=== PATIENT | female | born 2000 | race Caucasian/White ===

== ENCOUNTER 2020-01-24 10:16 | Emergency (ER) | payer OTHER, SELFPAY ==
[2020-01-24 10:32] VITALS: BP 109/66; PULSE 98; RESP 14; TEMP 36.8; O2SAT 100
[2020-01-24 11:05] LABS: Basophils Percent Auto 0.8 % (0.2-1.2); Eosinophils Absolute Auto 0.1 K/mm3 (0-0.3); Eosinophils Percent Auto 2.6 % (0-4.4); Hematocrit 39.7 % (37.0-47.0); Hemoglobin 13.5 g/dL (12.0-15.0); Immature Granulocyte Absolute 0.01 K/mm3 (0.00-0.031); Immature Granulocyte Percent A 0.2 % (0-0.5); Lymphocytes Absolute Auto 2.07 K/mm3 (0.9-3.2); Lymphocytes Percent Auto 39.1 % (18.3-44.2); Mean Corpuscular Hemoglobin 31.1 pg (26-34); Mean Corpuscular Volume 91.5 fl (80-100); Mean Platelet Volume 9.9 fl (7.4-10.4); Monocytes Absolute Auto 0.4 K/mm3 (0.1-0.6); Monocytes Percent Auto 7.4 % (2.6-8.5); Neutrophils Absolute Auto 2.6 K/mm3 (1.3-6.7); Neutrophils Percent Auto 49.9 % (45.5-73.1); Platelet Count Result 286 k/mm3 (150-375); Red Blood Count 4.34 M/mm3 (4.2-5.4); Red Cell Distribution Width 12.5 % (11.5-14.5); White Blood Count 5.3 K/mm3 (4.5-10.0)
[2020-01-24 11:18] LABS: Alanine Aminotransferase 12 U/L (4-35); Albumin Level 4.7 g/dL (3.7-5.6); Alkaline Phosphatase 60 U/L (45-116); Anion Gap 11.9 mmol/L (7-16); Aspartate Amino Transferase 23 U/L (14-36); Bilirubin,Total 0.4 mg/dL (0.2-1.3); Blood Urea Nitrogen 11 mg/dL (8-21); Calcium 9.4 mg/dL (8.9-10.7); Carbon Dioxide 27 mmol/L (22-30); Chloride 103 mmol/L (98-107); Estimated CRCL calculation 116 ml/min; Estimated Glomerular Filt Rate > 60; Glucose 93 mg/dL (65-105); Lipase 53 U/L (23-300); Potassium 3.9 mmol/L (3.4-5.0); Sodium 138 mmol/L (134-143)
[2020-01-24 11:26] LABS: Add Urine Microscopic? YES; Appearance Urine Cloudy (Clear); Bilirubin Urine Negative (Negative); Blood Urine 3+ (Negative); Color Urine Red (Yellow); Glucose Urine UA Negative (Negative); Ketones Urine Negative (Negative); Leukocyte Esterase Ur Negative LEU/UL (Negative); Mucus Urine Rare /lpf; Nitrate Urine Negative (Negative); Protein Urine 2+ mg/dL (Negative); RBC Urine >75 /hpf (0-2); Specific Grav Ur 1.019 (1.001-1.035); Squamous Epithelial Cell Urine Many /hpf (Few); Urobilinogen Urine Negative mg/dL (<2.0); WBC Urine 16-20 /hpf
[2020-01-24] MEDS: KETOROLAC 15 MG/ML VIAL (*BKC) IV PUSH (11:35)
--- NOTE | 2020-01-24 12:17 | PC.NURSE ---
Pelvic exam per ELIJAH Arroyo with this RN in attendance. Pt tolerated procedure well. Minimal bleeding noted. Pt wishes to replace tampon immediately after exam.
--- NOTE | 2020-01-24 12:58 | ED.GENADULT ---
HPI - General Adult General Chief complaint: Abdominal Pain Stated complaint: LOWER ABD PAIN Time Seen by Provider: 01/24/20 10:38 Source: patient and family Mode of arrival: ambulatory Limitations: no limitations History of Present Illness HPI narrative: Patient presents with pelvic discomfort and heavy vaginal bleeding accompanied with her menstrual cycle. Patient states that she has been evaluated within the past week by Dr. Chandrakant Cameron and is being managed for endometriosis. Patient states that she had a vaginal ultrasound which showed fluid around her uterus and she is having a laparoscopic procedure on the to remove said fluid. Patient states that she take Sprintec control pills but has for some time. She also takes Midol for pelvic discomfort when it presents. She last took a Midol this morning at approximately 10 AM prior to coming to the emergency department. Patient reports that the pain improves with pressure to her pelvic region. She reports that her bleeding has slowed.She denies weakness or dizziness. Related Data Home Medications Medication Instructions Recorded Confirmed norgestimate-ethinyl estradiol tablet 01/24/20 [Sprintec (28)] Allergies Allergy/AdvReac Type Severity Reaction Status Date / Time AMOXICILLIN Allergy Unknown Unknown Uncoded 01/24/20 10:38 Review of Systems Review of Systems: Narrative: CONSTITUTIONAL: Denies fever, chills, or sweats. EYES: Denies visual changes, redness, or discharge. ENT: Denies rhinorrhea, congestion, sore throat, or otalgia. CARDIOVASCULAR: Denies chest pain, palpitations, or edema. RESPIRATORY: Denies cough or dyspnea. GASTROINTESTINAL: Denies abdominal pain, nausea, vomiting, or diarrhea. GENITOURINARY: Reports heavy vaginal bleeding and pelvic pain denies dysuria or hematuria. SKIN: Denies rash or itching. MUSCULOSKELETAL: Denies back pain, joint pain, or myalgia. NEUROLOGIC: Denies headache, numbness, dizziness, or weakness. PSYCHIATRIC: Denies anxiety or depression. [facility] Past Medical History Medical History (Updated 01/24/20 @ 13:03 by Sundeep Montgomery PA-C) Endometriosis Social History Social History Gender identity (if verbalized by the patient): Female Exam Narrative: Exam Narrative: GENERAL: Well-appearing, well-nourished, and in no acute distress. HEAD: Normocephalic, atraumatic. EYES: PERRLA and EOMI. ENT: Nares clear, no rhinorrhea or epistaxis. Mucous membranes moist. Oropharynx without tonsillar hypertrophy exudate or other lesions. Bilateral TMs pearly mota nonbulging NECK: Supple. No adenopathy or masses. CHEST: Clear to auscultation. No respiratory distress. No wheezes rales or rhonchi HEART: Regular rate and rhythm. ABDOMEN: Soft, nontender to palpation, nondistended, normal active bowel sounds. PELVIC: Mild bleeding from cervix. A few small clots noted. No CMT. No discharge noted. EXTREMITIES: Normal range of motion. No edema. SKIN: Warm, dry, no rash. NEURO: No focal deficits. Alert and oriented x3. PSYCH: Normal mood and affect. Course Vital Signs Vital signs: Vital Signs Temperature 98.3 F 01/24/20 10:32 Pulse Rate 98 01/24/20 10:32 Respiratory Rate 14 01/24/20 10:32 Blood Pressure 109/66 01/24/20 10:32 Pulse Oximetry 100 01/24/20 10:32 Temperature 98.3 F 01/24/20 10:32 Pulse Rate 72 01/24/20 13:34 Respiratory Rate 16 01/24/20 13:34 Blood Pressure 134/75 01/24/20 13:34 Pulse Oximetry 100 01/24/20 13:34 Medical Decision Making MDM Narrative Medical decision making narrative: Consult Dr. More who is on-call for patient's BLOCK [employer] Dr. Chandrakant Cameron. He states to have the patient start her new pack of control pills immediately and tell her to skip any placebo weeks until her laparoscopic procedure. He would like her to continue Midol for discomfort. He states that she can also use Motrin if needed. He would not recommend any additional lab work or imaging in
[2020-01-24 13:34] VITALS: BP 134/75; PULSE 72; RESP 16; O2SAT 100
== END 2020-01-24 13:35 | disposition home or self-care (01) ==
PROVIDERS: Physician Assistant; Emergency Provider Emergency Medicine; PCP Family Medicine Adolescent Medicine
DX: N80.9 Endometriosis, unspecified (principal)
CPT/HCPCS: 36415; 80053; 81001; 81025; 83690; 85025; 87077; 87086; 87088; 87186; 96374; 99284; J1885

== ENCOUNTER 2020-01-28 12:36 | Outpatient (CLI) | payer OTHER, SELFPAY | END 2020-01-28 12:37 | disposition home or self-care (01) | PROVIDERS: PCP Family Medicine Adolescent Medicine; Visit Provider Obstetrics & Gynecology | DX: R10.2 Pelvic and perineal pain (principal); Z01.812 Encounter for preprocedural laboratory examination | CPT/HCPCS: 36415; 86850; 86900; 86901 ==

== ENCOUNTER 2020-02-09 02:06 | Outpatient (CLI) | payer OTHER, SELFPAY ==
[2020-02-09 18:39] LABS: SARS-CoV-2 RNA PCR Negative
== END 2020-02-09 02:07 | disposition home or self-care (01) ==
LOC: ANHCOVIDDT 02:06
PROVIDERS: PCP Family Medicine Adolescent Medicine; Visit Provider Obstetrics & Gynecology
DX: Z01.812 Encounter for preprocedural laboratory examination (principal); Z20.828 Contact with and (suspected) exposure to other viral communicable diseases
CPT/HCPCS: 87635; C9803; U0003

== ENCOUNTER 2020-02-11 00:11 | Day surgery (SDC) | payer OTHER, SELFPAY ==
[2020-01-26 09:09] VITALS: BMI 21.1
--- NOTE | 2020-02-09 09:09 | PM.IMHP ---
H&P: HPI History of Present Illness Date/Time: 02/09/20 09:09 Chief complaint: pelvic pain Narrative: Kevin Duque is a 19 year old female 0 who is admitted for diagnostic laparoscopy. She has a family history of severe endometriosis. She has been taking a control pill since age 14 and was well controlled she continues to be uncomfortable and had of dyspareunia. Cervical cultures were negative. She will undergo diagnostic laparoscopy. Risks and benefits reviewed including but not exclusive of , aspiration pneumonia, bleeding, transfusion perforation to bowel, bladder, ureters, or other internal organs for open laparotomy. She voiced good understanding. She received the [employer] handout entitled laparoscopy. She asked to proceed Review of Systems Review of Systems: All systems reviewed & are unremarkable except as noted in HPI and below PMFSH Past Medical History Medical History Endometriosis Social History Social History Smoking status: Never smoker Gender identity (if verbalized by the patient): Female Spiritual care concerns: No Meds Home Medications and Allergies Home Medications Medication Instructions Recorded Confirmed Type ketorolac 10 mg PO QID PRN 5 Days #20 tablet 01/24/20 01/26/20 Rx norgestimate-ethinyl estradiol 1 tablet PO DAILY 01/24/20 01/26/20 History [Sprintec (28)] multivitamin 1 tablet PO DAILY 01/26/20 01/26/20 History Allergies Allergy/AdvReac Type Severity Reaction Status Date / Time AMOXICILLIN Allergy Unknown patient Uncoded 01/26/20 09:25 has never taken-AVOIDS D/T BROTHER'S ALLERGY Exam Const: General: no acute distress Eyes: General: appearance normal, both eyes and all related structures Neck: Neck: supple and no JVD Thyroid: thyroid normal Resp: Effort & Inspection: normal respiratory effort Auscultation: clear to auscultation bilaterally Cardio: Rate: regular rate Rhythm: regular rhythm GI: Inspection: non-distended GI Palp: Yes Soft to palpation, No Tenderness to palpation present (GI) and No Guarding due to palpation present (GI) Auscultation: normal bowel sounds : General: Yes bladder normal to palpation External Female Exam: normal external appearance Speculum Exam - Vagina: normal vaginal discharge and No vaginal bleeding Speculum Exam - Cervix: nontender Bimanual exam- vagina & uterus: bladder normal to palpation and No Cervical tenderness present OB/external & speculum: No vaginal bleeding Skin: General skin exam: no rashes or lesions noted Extrem: General: normal to inspection and no edema Psych: Mental Status: mental status grossly normal Affect: normal affect Assessment and Plan Additional Plan impression: Severe pelvic pain with suspected endometriosis Plan: Diagnostic laparoscopy
[2020-02-11] VITALS (9 sets, daily range): BP systolic 101–124; BP diastolic 52–75; PULSE 54–86; RESP 14–20; TEMP 36.1–36.6; O2SAT 99–100
--- NOTE | 2020-02-11 06:25 | WPDHPUPDATE1 ---
History and Physical Update Update Date/Time: 02/11/20 06:25 History and Physical has been reviewed, including an updated exam of the patient. There are NO changes in the patient's condition. Risks, benefits, and alternatives have been discussed and questions answered. Patient agrees to proceed with procedure.
--- NOTE | 2020-02-11 06:27 | WPDHPUPDATE1 ---
History and Physical Update Update Date/Time: 02/11/20 06:27 History and Physical has been reviewed, including an updated exam of the patient. There are NO changes in the patient's condition. Risks, benefits, and alternatives have been discussed and questions answered. Patient agrees to proceed with procedure.
[2020-02-11] MEDS: ACETAMINOPHEN 500 MG TABLET 1000 MG PO (07:00)
[2020-02-11] MEDS: LACTATED RINGERS 1,000 ML 30 ML IV CONT ×2 (07:09→07:59)
--- NOTE | 2020-02-11 07:09 | WPDANESEPPF ---
Anes - Initial Pre Proc Eval Procedure: Operation Date: 02/11/20 07:30 Proposed Procedures p Diagnostic Laparoscopy - Jose Gottlieb MD Date/Time: 02/11/20 07:09 Surgeon: Jose Gottlieb MD Pre Op Diagnosis: pelvic pain Patient Data Age: 19 Gender: F Height: 5 ft 9 in Weight: 67.2 kg Allergies Allergy/AdvReac Type Severity Reaction Status Date / Time AMOXICILLIN Allergy Unknown patient Uncoded 02/11/20 06:46 has never taken-AVOIDS D/T BROTHER'S ALLERGY Home Medications Medication Instructions Recorded Confirmed Type ketorolac 10 mg PO QID PRN 5 Days #20 tablet 01/24/20 01/26/20 Rx norgestimate-ethinyl estradiol 1 tablet PO DAILY 01/24/20 02/11/20 History [Sprintec (28)] multivitamin 1 tablet PO DAILY 01/26/20 02/11/20 History hydrocodone-acetaminophen [[place]] 1 tablet PO Q4H PRN #30 tablet 02/11/20 Rx Patient hx anesthesia problems: none Family hx anesthesia problems: none PMFSH Past Medical History Medical History (Updated 02/11/20 @ 07:06 by Marcelo Vanegas MD) Depression Endometriosis Social History Social History Smoking status: Never smoker Gender identity (if verbalized by the patient): Female Spiritual care concerns: No Anes - Eval Final PreProcedure Day of Procedure 02/11/20 07:09 Patient weight: normal Heart: regular rate and rhythm Lungs: clear to auscultation Airway: Mallampati scale class II Neurological: alert and oriented Last oral intake: >/= 8 hours ASA classification: II Emergent: no Anesthetic plan: proceed Anesthesia type and monitoring: general ETT and standard monitoring Informed Consent: The patient's anesthetic plan and its attendant risks and benefits were discussed with the patient/family/POA. Questions were solicited and answers provided to the satisfaction of the patient/family/POA.
[2020-02-11] MEDS: KETOROLAC 15 MG/ML VIAL (*BKC) IV PUSH (07:18)
--- NOTE | 2020-02-11 07:50 | P.OP_ITS ---
Procedure Note - Detailed Date of procedure: 02/11/20 Pre-op diagnosis: pelvic pain Surgeon: Jose Gottlieb MD Postop diagnosis: Pelvic pain/ endometriosis Procedure: Laparoscopic destruction of endometriosis Anesthesia: General endotracheal EBL: 5Cc Findings: Normal-appearing ovaries tubes and uterus. [id number] of serosanguineous fluid. Multiple areas of powder burn endometriosis along each uterosacral ligament and in the cul-de-sac. Normal-appearing appendix Complications: None Description of procedure: The patient prepped and draped in normal sterile fashion placed in the dorsal lithotomy position. Under excellent general trach anesthesia weighted speculum placed in posterior fornix of vagina. Anterior lip of the cervix was grasped with a single-tooth tenaculum attached to the single- tooth. This was to be used later for uterine manipulation. Bladder was emptied of clear urine. The weighted speculum was removed and the gloves were changed. An infraumbilical incision made. The Veress needle passed in the abdomen. Abdomen was filled with CO2 gas [id number]. The 5mm trocar was advanced under direct visualization the suprapubic area assuring no injury. The serosanguineous fluid was irrigated and suctioned and removed. Areas of endometriosis were seen along the right left uterus sacral ligament as well as the cul-de-sac. The ovaries and tubes appeared within normal limits as did the uterus and appendix and gallbladder. The areas of endometriosis were then point cauterized at 35 w per 2nd with monopolar cautery assuring destruction. Irrigation was undertaken. No other abnormalities were seen the lower site was removed. The upper site was removed after gas removed from the abdomen and the incisions were closed with 4 Monocryl and glue. Patient was given. All sponge, needle, instrument counts were correct. There were no immediate complications
== END 2020-02-11 10:06 | disposition home or self-care (01) ==
PROVIDERS: PCP Family Medicine Adolescent Medicine; Visit Provider Obstetrics & Gynecology
PROC: (CPT 49320; principal; 2020-02-11 07:30)
DX: R10.2 Pelvic and perineal pain (principal); N80.3 Endometriosis of pelvic peritoneum
CPT/HCPCS: 58662; A9270; J0330; J1100; J1885; J2250; J2370; J2405; J2704; J3010; J7030; J7120

== ENCOUNTER → 2021-04-27 04:08 | Outpatient (CLI) | payer OTHER, SELFPAY ==
[2021-04-27 17:24] LABS: SARS-CoV-2 RNA PCR Negative
== END ==
PROVIDERS: PCP Family Medicine Adolescent Medicine; Visit Provider Family Medicine Adolescent Medicine
DX: R50.9 Fever, unspecified (principal); R05.9 Cough, unspecified; Z20.822 Contact with and (suspected) exposure to COVID-19
CPT/HCPCS: C9803; U0003; U0005